=== PATIENT | male | born 1945 | race Asian ===

== ENCOUNTER 2025-03-06 16:33 | Emergency (ER) | payer MEDICARE, OTHER ==
[2025-03-06 16:38] VITALS: BP 0/0; BMI 25.0
== END 2025-03-06 19:49 | disposition expired ==
LOC: FER 16:33
PROC: 06H Lower Veins, Insertion (ICD-10-PCS; principal; 2025-03-06)
PROC: 5A12012 Performance of Cardiac Output, Single, Manual (ICD-10-PCS; 2025-03-06)
PROC: 0BH17EZ Insertion of Endotracheal Airway into Trachea, Via Natural or Artificial Opening (ICD-10-PCS; 2025-03-06)
DX: I46.9 Cardiac arrest, cause unspecified (principal); R55 Syncope and collapse; R46.4 Slowness and poor responsiveness
CPT/HCPCS: 99291